=== PATIENT | female | born 1965 | race Caucasian/White ===

== ENCOUNTER 2024-03-27 07:26 | Day surgery (SDC) | payer OTHER | END 2024-03-27 23:00 | disposition home or self-care (01) | LOC: MOI US 07:26 | DX: C50.812 Malignant neoplasm of overlapping sites of left female breast (principal) | CPT/HCPCS: 19285; 77065; A4648 ==

== ENCOUNTER 2024-03-30 08:58 | Day surgery (SDC) | payer OTHER ==
[~2024-03-30] VITALS: Ht 170.2 cm; Wt 75.9 kg
[2024-03-30] VITALS (8 sets, daily range): BP systolic 106–126; BP diastolic 59–75
[2024-03-30] MEDS ORDERED: CeFAZolin Sodium 2,000 MG in NS 100 ML IV SCH (09:50)
[2024-03-30] MEDS ORDERED: Lactated Ringer's 1,000 ML IV SCH (09:50)
[2024-03-30] MEDS ORDERED: Midazolam HCl 1MG / ML 2ML Vial ONE (10:30)
[2024-03-30] MEDS ORDERED: FentaNYL Citrate 50 MCG/ML 2 ML Injection ONE ×2 (10:30→12:52)
[2024-03-30] MEDS ORDERED: propofoL 20 ML IV ONE (10:30)
[2024-03-30] MEDS ORDERED: Bupivacaine 0.5% HCl 5 MG/ML 30MLVIAL ONE (11:00)
[2024-03-30] MEDS ORDERED: Methylene Blue 1% 100 MG/10 ML VIAL ONE (11:00)
[2024-03-30] MEDS ORDERED: HYDROcodone 5-APAP 325 TAB PO PRN (14:10)
--- NOTE | 2024-03-30 14:15 | NUR ---
1355 LEFT BREAST DRESSING D&I LEFT AXILARY INC INTACT WITH STERI STRIP BREAST BINDER IN PLACE. VSS. LMA REMOVED APON ARRIVAL TO PACU.
--- NOTE | 2024-03-30 14:24 | NUR ---
REPORT RECEIVED FROM PRAVIN STRANGE. VSS. PT ON RA. PT A&OX4. PT ABLE TO REPOSITION SELF IN BED. PT REQUESTING PO FOOD AND FLUIDS AND TOLERATING THEM WELL. PT REPORTS SORENESS TO LEFT BREAST THAT IS TOLERABLE. PT DENIES NAUSEA OR OTHER DISCOMFORTS. PT HAS GAUZE TO LEFT BREAST, STERI STRIP TO LEFT AXILLARY AND BREAST BINDER IN PLACE. DRESSINGS ARE C/D/I WITHOUT DRAINAGE, REDNESS OR SWELLING.
--- NOTE | 2024-03-30 14:56 | NUR ---
Patient up to Ambulate independently. Gait steady. VSS AND CONSISTENT WITH PT BASELINE. PT REPORTS PAIN THAT IS TOLERABLE, REFUSES PAIN MEDICATION AND VERBALIZES READINESS TO GO HOME. Discharge instructions reviewed with patient. Patient verbalizes understanding. Copy given to patient to take home. Dressing to procedure site clean, dry, intact with no visible drainage, swelling, erythema or bruising noted. Patient States Post-Procedure ride home has been arranged. Discharged via wheelchair to private car for ride home. PT BELONGINGS RETURNED TO PT.
== END 2024-03-30 14:54 | disposition home or self-care (01) ==
LOC: ORSCMMR 08:58 → NM 08:58 → ORSCMMR 09:00 → NM 09:30
PROVIDERS: Surgery
PROC: 0HBU0ZZ Excision of Left Breast, Open Approach (ICD-10-PCS; principal; 2024-03-30 11:30)
PROC: 07B60ZX Excision of Left Axillary Lymphatic, Open Approach, Diagnostic (ICD-10-PCS; principal; 2024-03-30 11:30)
DX: C50.812 Malignant neoplasm of overlapping sites of left female breast (principal); Z80.3 Family history of malignant neoplasm of breast; D36.0 Benign neoplasm of lymph nodes; Z17.0 Estrogen receptor positive status [ER+]; F17.210 Nicotine dependence, cigarettes, uncomplicated; I25.2 Old myocardial infarction; B19.20 Unspecified viral hepatitis C without hepatic coma
CPT/HCPCS: 38792; 76098; 88307; 88342; A9520; J0690; J2250; J2704; J3010; J7120; Q9968

== ENCOUNTER 2024-04-11 19:11 | Emergency (ER) | payer OTHER ==
[~2024-04-11] VITALS: Ht 170.2 cm; Wt 77.1 kg
[2024-04-11 19:18] VITALS: BP 138/65
[2024-04-11] MEDS ORDERED: Ondansetron HCl 2 MG / ML 2ML Vial IV ONE (19:25)
[2024-04-11] MEDS ORDERED: Ondansetron 4 MG SoluTab SL ONE (20:15)
[2024-04-11] MEDS ORDERED: Diphth,Pertuss(Acell),Tet Vac 0.5 ML VIAL IM ONE (20:35)
[2024-04-11] MEDS ORDERED: Ondansetron 8 MG SoluTab SL ONE (20:35)
[2024-04-11] MEDS ORDERED: ONDA4 PO (21:40)
== END 2024-04-11 21:49 | disposition home or self-care (01) ==
LOC: ER 19:11
DX: S01.81XA Laceration without foreign body of other part of head, initial encounter (principal); F17.200 Nicotine dependence, unspecified, uncomplicated; Z23 Encounter for immunization; Z88.5 Allergy status to narcotic agent; W11.XXXA Fall on and from ladder, initial encounter
CPT/HCPCS: 12002; 70450; 90471; 90715; 99283-25; A9270; J2405

== ENCOUNTER 2024-04-17 14:06 | Emergency (ER) | payer OTHER ==
[~2024-04-17] VITALS: Ht 170.2 cm; Wt 77.1 kg
[~2024-04-17 14:06] MED LIST: ONDA4 PO
[2024-04-17 14:41] VITALS: BP 123/74
== END 2024-04-19 14:51 | disposition home or self-care (01) ==
LOC: ER 14:06
DX: S01.01XA Laceration without foreign body of scalp, initial encounter (principal); R07.9 Chest pain, unspecified; F17.200 Nicotine dependence, unspecified, uncomplicated; Z88.5 Allergy status to narcotic agent; W11.XXXA Fall on and from ladder, initial encounter
CPT/HCPCS: 99282

== ENCOUNTER → 2024-06-14 | Outpatient (CLI) | payer OTHER ==
[2024-06-16 14:19] LABS: HSV 1 SUBTYPE BY PCR Not Detected; HSV 2 SUBTYPE BY PCR Not Detected; HSV SUBTYPE SOURCE VAGINA
== END ==
LOC: LAB 15:10 → LAB SHORT 15:10
PROVIDERS: Nurse Practitioner Obstetrics & Gynecology
DX: B00.9 Herpesviral infection, unspecified (principal)
CPT/HCPCS: 87529

== ENCOUNTER 2024-08-02 03:36 | Day surgery (SDC) | payer OTHER ==
[~2024-08-02] VITALS: Ht 167.6 cm; Wt 77.0 kg
[~2024-08-02 03:36] MED LIST changes: +ANAS1 PO; +MELO7.5 PO
[2024-08-02] MEDS ORDERED: FentaNYL Citrate 50 MCG/ML 2 ML Injection ONE (06:59)
[2024-08-02] MEDS ORDERED: propofoL 0 ML IV ONE (06:59)
[2024-08-02 07:07] VITALS: BP 125/77
[2024-08-02] MEDS ORDERED: Sugammadex Sodium 200 MG/2ML SDV (100 MG/ML) ONE (07:20)
[2024-08-02 07:25] LABS: BASOPHILS ABSOLUTE AUTO 0.04 K/mm3 (0.00-0.23); BASOPHILS PERCENT AUTO 1 % (0-2); EOSINOPHILS ABSOLUTE AUTO 0.08 K/mm3 (0.00-0.68); EOSINOPHILS PERCENT AUTO 2 % (0-6); Hematocrit 40.1 % (33.0-51.0); Hemoglobin 13.5 g/dL (11.5-16.0); IMMATURE GRAN PERCENT AUTO 0 % (0-1); LYMPHOCYTES ABSOLUTE AUTO 1.48 K/mm3 (0.84-5.20); LYMPHOCYTES PERCENT AUTO 37 % (21-46); MONOCYTES PERCENT AUTO 10 % (4-13); Mean Corpuscular HGB Conc 33.7 g/dL (31.5-36.5); Mean Corpuscular Volume 86 fL (80-100); Mean Platelet Volume 10.2 fL (9.1-12.4); NEUTROPHILS ABSOLUTE AUTO 2.06 K/mm3 (1.96-9.15); NEUTROPHILS PERCENT AUTO 51 % (41-73); Platelet Count 241 K/mm3 (150-400); RDW Coefficient Variation 14.1 % (11.7-14.2); RDW Standard Deviation 44.4 fL (35.1-46.3); Red Blood Cell Count 4.65 M/mm3 (3.80-5.20); White Blood Cell Count 4.06 K/mm3 (4.00-11.30)
[2024-08-02] MEDS ORDERED: Bupivacaine 0.5% HCl 5 MG/ML 30MLVIAL ONE (07:28)
[2024-08-02] MEDS ORDERED: NS 0 ML IV ONE (07:29)
[2024-08-02 07:39] LABS: Bun/Creatinine Ratio 19.9 (12.0-20.0); Calcium, Blood 8.6 mg/dL (8.5-10.1); Creatinine, Blood 0.7 mg/dL (0.40-1.00); Potassium, Blood 3.6 mmol/L (3.5-5.5)
[2024-08-02 07:40] LABS: International Normalized Ratio 1.02; Prothrombin Time Results 10.9 Sec (9.7-11.5)
== END 2024-08-02 23:00 | disposition home or self-care (01) ==
LOC: LAB 03:36 → MHTC 03:36 → ORSCMMR 03:36 → MHTC 06:39 → ORSCMMR 06:39 → MHTC 06:40 → ORSCMMR 06:40 → ORD 07:30 → MHTC 23:00 → ORSCMMR 23:00
PROVIDERS: Student in an Organized Health Care Education/Training Program
DX: M43.8X4 Other specified deforming dorsopathies, thoracic region (principal); Z53.9 Procedure and treatment not carried out, unspecified reason
CPT/HCPCS: 80048; 85025; 85610; J2704; J3010; J7040